=== PATIENT | female | born 1955 | race Caucasian/White ===

== ENCOUNTER 2020-08-09 13:39 | Outpatient (CLI) | payer MEDICARE | END 2020-08-09 23:59 | disposition home or self-care (01) | LOC: RAD 13:39 | PROVIDERS: ATTEND Student in an Organized Health Care Education/Training Program | DX: R10.9 Unspecified abdominal pain (principal); R05 Cough | CPT/HCPCS: 71046; 76705 ==

== ENCOUNTER 2020-09-29 13:34 | Day surgery (SDC) | payer MEDICARE ==
[2020-09-23 12:06] LABS: BASOPHILS # (AUTO) 0.1 X10'3 (0-0.2); BASOPHILS % (AUTO) 1.2 % (0-1); EOSINOPHILS # (AUTO) 0.3 X10'3 (0-0.9); EOSINOPHILS % (AUTO) 3.8 % (0-6); LYMPHOCYTES # (AUTO) 1.8 X10'3 (1.1-4.8); LYMPHOCYTES % (AUTO) 26.2 % (21-51); MEAN CORPUSCULAR HEMOGLOBIN 29.1 PG (27.0-31.0); MEAN CORPUSCULAR HGB CONC 33.6 g/dL (33.0-36.5); MEAN CORPUSCULAR VOLUME 86.8 FL (78-98); MEAN PLATELET VOLUME 8.3 FL (7.4-10.4); MONOCYTES # (AUTO) 0.6 X10'3 (0-0.9); MONOCYTES % (AUTO) 8.5 % (2-12); NEUTROPHILS # (AUTO) 4.2 X10'3 (1.8-7.7); NEUTROPHILS % (AUTO) 60.3 % (42-75); PRE OP HEMOGLOBIN 14.4 g/dL (12.0-16.0); PRE OP PLATELET COUNT 305 X10'3 (140-440); RED BLOOD COUNT 4.96 X10'6 (4.20-5.60); RED CELL DISTRIBUTION WIDTH 13.2 % (11.5-14.5)
[2020-09-23 12:22] LABS: ALBUMIN 4.1 G/DL (3.4-5.0); ALBUMIN/GLOBULIN RATIO 0.9 (1.1-1.5); ALKALINE PHOSPHATASE 173 IU/L (46-116); BLOOD UREA NITROGEN 15 MG/DL (7-18); CALCIUM 10.3 MG/DL (8.5-10.1); CHLORIDE 102 MMOL/L (99-107); CREATININE 0.94 MG/DL (0.40-0.90); PRE OP ALT 28 U/L (30-65); PRE OP ANION GAP 12 (8-16); PRE OP AST 31 U/L (10-37); PRE OP BILIRUB, TOTAL 0.3 MG/DL (0.0-1.0); PRE OP GLUCOSE 97 MG/DL (70-104); PRE OP POTASSIUM 3.7 MMOL/L (3.4-5.1); PRE OP SODIUM 141 MMOL/L (135-145); TOTAL CARBON DIOXIDE 27.2 MMOL/L (24-32); TOTAL PROTEIN 8.7 G/DL (6.4-8.2); eGFR 60 ML/MIN
[2020-09-29] VITALS (12 sets, daily range): BP systolic 127–164; BP diastolic 66–88
[~2020-09-29] VITALS: Ht 162.6 cm; Wt 65.8 kg
[~2020-09-29 13:34] MED LIST: AMOX-580 PO; BUPIVAcaine/PF 2.5 mg/ml (0.25%) 30ml vial ONE; CALC-336 PO; ERGO400C PO; LAMO100T PO; LIDOcaine 1% 30ml preserv. free vial ONE; ROSU5TAB12 PO; acetaminophen 1,000mg/100ml IV 100 ML IV PRN; cefoxitin sod inj 2,000 MG in normal saline 100ml IV soln 100 ML IV ONE; famotidine 20mg tablet PO ONE; hydrALAZINE 20mg/ml inj. IV PRN; labetalol 20mg/4ml (5mg/ml) syringe IV PRN; meperidine/PF 25mg/ml syringe IV PRN; morphine 2 MG/ML inj. syringe IV PRN; morphine 4 MG/ML inj SYRINge IV PRN; ondansetron/PF 4mg/2ml inj IV PRN; proCHLORperazine 10 MG/2 ml inj IV PRN; ringers solution, lacted 1,000 ML IV SCH
[2020-09-29] MEDS ORDERED: ceFOXitin 2GM-NS 100mL ADDvant 100 ML IV ONE (13:41)
[2020-09-29] MEDS: INDOCYANINE GREEN 25 MG/10 ML VIAL IV ONE ×2 (13:50→14:14)
[2020-09-29] MEDS ORDERED: ceFOXitin sod/dextrose 2g/50ml 50 ML IV ONE (13:56)
[2020-09-29] MEDS ORDERED: sevoflurane 250ml liquid IH ONE (14:12)
[2020-09-29] MEDS ORDERED: fentaNYL/PF 50MCG/1 ML 2ML syringe ONE (14:15)
[2020-09-29] MEDS ORDERED: LIDOcaine 2% (20mg/ml) 5ml vial ONE (14:24)
[2020-09-29] MEDS ORDERED: midazolam 2 mg/2 ml injection ONE (14:24)
[2020-09-29] MEDS ORDERED: ondansetron/PF 4mg/2ml inj ONE (14:24)
[2020-09-29] MEDS ORDERED: propofol inj 20 ML IV ONE (14:24)
[2020-09-29] MEDS ORDERED: rocuronium 10mg/ml inj IV ONE (14:24)
[2020-09-29] MEDS ORDERED: dexamethasone sod phosphate 4mg/ml inj. ONE (14:24)
[2020-09-29] MEDS ORDERED: acetaminophen 1,000mg/100ml IV 100 ML IV ONE (14:51)
[2020-09-29] MEDS ORDERED: neostigmine methylsulfate 1 MG/ML 10ml vial ONE (15:06)
[2020-09-29] MEDS ORDERED: glycopyrrolate 0.2mg/ml inj ONE (15:06)
--- NOTE | 2020-09-29 15:07 | NUR ---
VSS. PT STATES ADEQUATE PAIN RELIEF AND READINESS TO D/C HOME. ADB SOFT/NONTENDER. ABD DSG CDI. FAWN PO WELL. D/C INSTRUCTIONS REVIEWED WITH PT WHO VERBALIZED UNDERSTANDING. D/C HOME VIA WC TO PVT AUTO WITH PERSONAL BELONGINGSJOSE PT Addendum: 09/29/20 at 1733 by Maritza Sterling RN Amended: Links added. Addendum: 09/29/20 at 1751 by Maritza Sterling RN CORRECT TIME OF NOTE 1707- TIME OF D/C HOME
[2020-09-29] MEDS ORDERED: HYDROcodone/acetaminophen 5mg/325mg tablet PO PRN (15:25)
--- NOTE | 2020-09-29 15:27 | NUR ---
Received from OR via [facility], accompanied by Anesthesiologist DR CEDENO and report given by Anesthesiologist. VSS. AWAKE, FOLLOWS COMMANDS EASILY. DENIES PAIN WHEN ASKED. DERMABOND TO ABD SITES X4 CDI. ABD SOFT/NONTENDER. IV LEFT AC #20 PATENT LR 100MLS/HR. SKIN PWD. Addendum: 09/29/20 at 1538 by Maritza Sterling RN Amended: Links added.
== END 2020-09-29 17:07 | disposition home or self-care (01) ==
LOC: PAS 13:34
PROVIDERS: ATTEND Surgery
DX: K38.8 Other specified diseases of appendix (principal); K35.33 Acute appendicitis with perforation, localized peritonitis, and gangrene, with abscess; F41.9 Anxiety disorder, unspecified; M19.90 Unspecified osteoarthritis, unspecified site; E78.5 Hyperlipidemia, unspecified; Z20.828 Contact with and (suspected) exposure to other viral communicable diseases; Z79.899 Other long term (current) drug therapy; Z98.890 Other specified postprocedural states; Z82.61 Family history of arthritis; Z82.49 Family history of ischemic heart disease and other diseases of the circulatory system; Z81.8 Family history of other mental and behavioral disorders
CPT/HCPCS: 36415; 44970; 80053; 82948; 85025; 87635; 93005; J0131; J0694; J1100; J2001; J2250; J2405; J2704; J2710; J3010; J3490; A4215; A4618; J7120